=== PATIENT | male | born 1955 | race African-American/Black ===

== ENCOUNTER 2016-10-15 15:31 | Emergency (ER) | payer MEDICAID ==
[2016-10-15] MEDS ORDERED: NOREPINEPHRINE 1 MG/ML 4 ML VIAL IV ONE ×2 (15:41→15:43)
[2016-10-15] MEDS ORDERED: DEXTROSE 5% AVIVA 250 ML IV ONE (15:42)
[2016-10-15 15:50] VITALS: RESP 18
[2016-10-15] MEDS ORDERED: ED DOPamine PREMIX 250 ML IV ONE (18:12)
== END 2016-10-15 17:51 | disposition expired ==
LOC: EDBD 15:31 → MERGE 15:31 → ER 15:31
DX: C34.90 Malignant neoplasm of unspecified part of unspecified bronchus or lung; J44.9 Chronic obstructive pulmonary disease, unspecified
CPT/HCPCS: 36415; 36600; 71010; 80047; 80051; 80053; 82330; 82553; 82803; 83735; 84484; 85014; 85025; 85610; 92950; 93005; 94799; 96361; 96374; 96375